=== PATIENT | female | born 1965 | race Caucasian/White ===

== ENCOUNTER 2024-02-22 00:55 | Emergency (ER) | payer MEDICARE, MEDICAID, SELFPAY ==
[2024-02-22 00:56] VITALS: BP 148/104; PULSE 90; RESP 18; TEMP 36.5; O2SAT 100; BMI 32.1
--- NOTE | 2024-02-22 01:01 | CT_ITS ---
INDICATION: FALL EXAMINATION: CT BRAIN - CT Head or Brain W/O Contrast Injection TECHNIQUE: Multiple axial images were obtained of the head without intravenous contrast. The protocol utilizes one or more of the following dose reduction techniques: automated exposure control, adjustment of mA and/or kV according to patient size,and/or use of iterative reconstruction technique. IV Contrast dosage and agent: None. RADIATION DOSAGE (If Supplied By Facility): CTDIvol = ( 44.99 ) mGy, DLP = ( 762.36 ) mGycm COMPARISON: None. FINDINGS: BRAIN: No acute bleed. No edema. Cystic encephalomalacia in the left frontoparietal region related to prior infarct or other prior insult. Dodson-white matter differentiation is maintained. VENTRICLES AND SULCI: Not dilated. EXTRA-AXIAL: No hemorrhage, fluid collection, or mass. CALVARIUM / SKULL BASE: Unremarkable. FACE/SINUSES: Unremarkable. SOFT TISSUES: Unremarkable. CT/Brain/Head without Contrast IMPRESSION: No acute abnormality. Left cerebral encephalomalacia. Electronically Signed: Octavia Alfaro MD at 3:00 EDT ,
--- NOTE | 2024-02-22 01:01 | EKG12_ITS ---
Test Reason : SYNCOPAL EPISODE Blood Pressure : / mmHG Vent. Rate : 090 BPM Atrial Rate : 090 BPM P-R Int : 366 ms QRS Dur : 124 ms QT Int : 410 ms P-R-T Axes : 059 091 -64 degrees QTc Int : 501 ms Sinus rhythm with sinus arrhythmia with 1st degree A-V block Right bundle branch block T wave abnormality, consider inferolateral ischemia Abnormal ECG Confirmed by Erasmo Hawthorne ([id number]), order editor HAN CHANCE ([id number]) on 02/23/2024 1:47:05 PM Referred By: CRISTO Confirmed By:Erasmo Hawthorne
--- NOTE | 2024-02-22 01:02 | EX.ED.DYSGE1 ---
HPI History of Present Illness Chief Complaint: Syncope [facility] Medical History (Updated 02/22/24 @ 03:[address] Lon Hart, DO) Developmental disability Congenital heart defect Murmur, cardiac Seizure Atrial fibrillation Home Medications ?Medication ?Instructions ?Recorded ?Last Taken ?Type Glycopyrrolate [Robinul Forte] 2 mg PO BID 07/12/13 Unknown History Promethazine Vc Syrup 07/12/13 Unknown History dexlansoprazole 60 mg 60 mg PO DAILY 07/12/13 Unknown History capsule,biphase delayed release (Dexilant) famotidine 40 mg tablet (Pepcid) 40 mg PO DAILY 07/12/13 Unknown History lamotrigine 200 mg tablet 200 mg PO DAILY 07/12/13 Unknown History (Lamictal) nitroglycerin 0.4 mg sublingual 0.4 mg sublingual Q5M PRN Chest 07/12/13 Unknown History tablet Pain phenobarbital 64.8 mg tablet 129.6 mg PO BID 07/12/13 Unknown History promethazine 25 mg tablet 12.5 mg PO Q6H PRN PRN 07/12/13 Unknown History Nausea/Vomiting simethicone 80 mg chewable tablet 80 mg PO PRN PRN Gas 07/12/13 Unknown History (Gas-X) atenolol 50 mg tablet 50 mg PO DAILY ##60 07/15/13 Unknown Rx rivaroxaban 20 mg tablet (Xarelto) 20 mg PO DAILY ##90 07/15/13 Unknown Rx lamotrigine 200 mg tablet 300 mg PO QHS 02/22/24 Unknown History (Lamictal) Allergy/AdvReac Type Severity Reaction Status Date / Time Histamine H2 Inhibitors Allergy Hives Verified 07/12/13 12:38 codeine AdvReac Other Verified 07/12/13 12:38 ibuprofen (From Motrin) AdvReac Other Verified 07/12/13 12:38 Sulfa (Sulfonamide AdvReac Other Verified 07/12/13 12:38 Antibiotics) Surgical History (Updated 02/22/24 @ 01:04 by Kacie No) History of surgery on arm History of open heart surgery Social History Smoking Status: Never smoker EXAM Physical Exam Const Vital Signs: 02/22/24 00:56 02/22/24 01:05 02/22/24 02:00 Temperature 97.7 F L Temperature Source Oral Pulse Rate 90 89 Respiratory Rate 18 21 H Respiratory Effort Normal Non-Labored Respiratory Pattern Normal Blood Pressure 148/104 H 143/104 H Blood Pressure Mean 118 117 Pulse Ox 100 97 Oxygen Delivery Method Room Air Room Air [facility] Narrative Medical decision making narrative: HISTORY OF PRESENT ILLNESS: 58-year-old female presents with concern for syncope. Notes prior to arrival she is up to get water when she lost consciousness. REVIEW OF SYSTEMS: Pertinent positives: Syncope, head trauma Pertinent negatives: Headache, fever, vomiting, bleeding diathesis, loss of movement or sensation, chest pain, shortness of breath, abdominal pain PHYSICAL EXAM: Nursing triage notes reviewed, Vital signs reviewed Constitutional: please see [facility] HENT: MMM, normocephalic, atraumatic, no cephalhematoma, no intraoral lesions, midface stable, Eyes: Pupils equal round and reactive to light, Extraocular muscles intact Neck: No stridor, no JVD, full neck ROM, cervical spine without step-off deformities, no TTP, Lungs: Clear to auscultation, No wheezing or rales. No increased work of breathing, no conversational dyspnea, no accessory muscle use, no nasal flaring. No respiratory distress noted, no flail chest or crepitus, Heart: Regular rate and rhythm, No murmurs, No rubs and No gallops, 2+ distal pulses (radial, femoral, posterior tibial) in all extremities Abdomen: Soft, there is no tenderness, rigidity, rebound or guarding, no obvious peritoneal signs, no palpable pulsatile abdominal masses, no auscultated abdominal bruit : No CVAT, stable pelvis to compression Extremities: No edema, no injuries, erythema or edema Neuro: No focal neurological deficits, cranial nerves II through XII intact, 5/5 strength in all extremities. Intact sensation to light touch in all extremities, 2+ reflexes bilateral patella tendons. Normal gait. No ataxia. Skin: No rash or lesions noted MEDICAL DECISION MAKING: Chief Complaint: Syncope External records reviewed: Imaging reviewed: Echocardiogram reviewed 2012 showed ejection fraction of 60% Factors affecting care: atrial fibrillation on Xarelto, Social determinants of health: History of MRDD History obtained from others: Patient's family Consults: none at this time [facility] Narrative: Patient was hemodynamically stable, afebrile and nontoxic-appearing. Exam without focal cardiopulmonary maladies. No signs of trauma. Initial vital signs were blood pressure 148/104, pulse of 90, respirate 18, temperature 97.7, O2 sat 100% I considered the following differential diagnosis: ICH, arrhythmia, anemia, electro disturbance, ACS, PE, pneumonia, pneumothorax Patient's history and clinical exam not consistent with PE, she is on a blood thinner. She has no signs of right heart strain. She is low risk Wells score. As such while I considered obtaining a CT of the chest I thought this not indicated at this time given low risk of VTE. ALL IMAGES (IF OBTAINED) HAVE BEEN PERSONALLY REVIEWED AND INTERPRETED BY MYSELF. Initial EKG with rate controlled atrial fibrillation at a rate of 90, right axis deviation, prolonged QT interval, no STEMI BMP without evidence of significant electrolyte abnormalities, no anion gap, no acute kidney injury. High-sensitivity troponin is negative, no evidence of myocardial ischemia x 2 BNP within normal limits suggestive of no heart failure CBC without leukocytosis, severe anemia, no thrombocytopenia. CT scan of the head shows no evidence of ICH I have personally reviewed the patient's chest x-ray. Chest x-ray is unremarkable for pulmonary edema, pneumothorax, pneumonia or focal cardiopulmonary abnormality. The synthesis of the patient's history, physical exam, labs images suggest no acute life-limiting etiology specifically no signs of heart failure, volume overload, ACS, PE, dissection, pneumonia, pneumothorax, subarachnoid hemorrhage, ICH, anemia, electrolyte disturbance, significant dehydration The etiology of patient's syncope remains unclear however it is unlikely to be life-threatening. Patient has an already scheduled point with cardiology for evaluation and potential planned pacemaker placement. There is no indication for admission at this time for pacemaker placement as patient has no definitive heart block on her EKG or monitoring. No events on telemetry. The patient and/or family, caregivers express understanding. The patient and/or family, caregivers agrees with the plan. Shared decision making: I will have a discussion with the patient and or visitors regarding risk/benefits of further testing or admission. They will be made aware of of the risk/benefits inherent in this decision they will be given the opportunity to voice understanding. Total critical care time today provided was at least 0 minutes. This excludes separately billable procedures. Critical care time (if documented) is secondary to the patient having high probability of clinically significant/life threatening deterioration in the patient's condition which required my urgent intervention. Impression: 1. Syncope 2. Atrial fibrillation 3. History of anticoagulant Dispo: Discharge home This note was generated with [employer] dictation software. It may contain incorrect words, spelling, and punctuation that were not noted in review of the chart prior to signing. Lab Data Labs: Laboratory Results - last 24 hr 02/22/24 02/22/24 01:20 02:15 WBC 7.7 RBC 4.66 Hgb 14.4 Hct 43.5 MCV 93.3 MCH 30.9 MCHC 33.1 RDW Std Deviation 43.5 RDW Coeff of Shaw 12.8 Plt Count 265 MPV 10.2 Immature Gran % (Auto) 0.400 Neut % (Auto) 45.4 L Lymph % (Auto) 41.9 H Wilkes % (Auto) 8.4 Eos % (Auto) 3.0 Baso % (Auto) 0.9 Absolute Neuts (auto) 3.5 Absolute Lymphs (auto) 3.21 Nucleated RBC % 0 Sodium 139 Potassium 3.9 Chloride 105 Carbon Dioxide 28.0 Anion Gap 6 BUN 19 H Creatinine 0.96 Estim Creat Clear Calc 55.96 Est GFR (MDRD) Af Amer 76 Est GFR (MDRD) Non-Af 63 BUN/Creatinine Ratio 19.8 Glucose 97 Calcium 9.1 Troponin I High Sens 7 8 B-Natriuretic Peptide 41.3 Radiography Diagnostic Testing: Clinical Impression(s) from Imaging Studies Brain CT 02/22/24 01:01 IMPRESSION: No acute abnormality. Left cerebral encephalomalacia. Electronically Signed: Octavia Alfaro MD at 3:00 EDT , Chest X-Ray 02/22/24 01:35 IMPRESSION: No evidence of active intrathoracic disease. Electronically Signed: Octavia Alfaro MD at 3:08 EDT , Discharge Plan Triage Chief Complaint: Syncope ED Provider: Lon Hart Dx/Rx/DC Orders Clinical Impression: Syncope Instructions: Causes of Syncope, ED Fainting, Uncertain Cause Prescriptions: No Action lamotrigine [Lamictal] 200 MG tablet 200 mg PO DAILY Patient Comments: 1 TABLET IN MORNING AND 1 AND 1/2 TABLETS AT NIGHT famotidine [Pepcid] 40 MG tablet 40 mg PO DAILY promethazine 25 MG tablet 12.5 mg PO Q6H PRN PRN (Reason: Nausea/Vomiting) phenobarbital 64.8 MG tablet 129.6 mg PO BID nitroglycerin 0.4 MG tablet 0.4 mg sublingual Q5M PRN (Reason: Chest Pain) simethicone [Gas-X] 80 MG tablet,chewable 80 mg PO PRN PRN (Reason: Gas) dexlansoprazole [Dexilant] 60 MG capsule,biphase delayed releas 60 mg PO DAILY Glycopyrrolate [Robinul Forte] 2 MG tablet 2 mg PO BID Promethazine Vc Syrup Xarelto 20 MG tablet 20 mg PO DAILY Qty: 90 0RF atenolol 50 MG tablet 50 mg PO DAILY Qty: 60 0RF lamotrigine [Lamictal] 200 mg tablet 300 mg PO QHS Primary Care Provider: George Soliman Referrals: Manuel Molina, [Non-Staff] - Activity Restrictions/Additional Instructions: Thank you for trusting us with your care today! Please drink plenty of fluids. Please follow-up with your already scheduled cardiology appointment. Please return to the emergency department if your symptoms change or worsen. Please follow with Cardiology for further outpatient evaluation and management. Print Language: [place] Disposition Disposition: Home, Self Care
[2024-02-22] MEDS: 0.9% Normal Saline (1000mL) 1,000 ML 1000 ML IV (01:17)
[2024-02-22 01:31] LABS: Absolute Lymphocyte Count 3.21 X10^3/uL (0.83-4.51); Absolute Neutrophil Count 3.5 X10^3/uL (2.0-7.7); Basophil# 0.07 X10^3/uL; Basophil% 0.9 % (0-1); Eosinophil# 0.23 X10^3/uL; Hematocrit 43.5 % (37-47); Hemoglobin 14.4 g/dL (12.0-15.0); Lymphocyte # 3.21 X10^3/ul (0.83-4.51); Lymphocyte % 41.9 % (19-41); Mean Corp Hgb Conc 33.1 g/dL (32-36); Mean Corpuscular Hgb 30.9 pg (27.0-32.0); Mean Corpuscular Volume 93.3 fL (81-99); Mean Platelet Vol. 10.2 fl (6.2-12.0); Monocyte# 0.64 X10^3/uL; Monocyte% 8.4 % (0-10); NRBC Flagged by Analyzer 0 % (0-5); Neutrophil # 3.48 X10^3/uL (2.7-7.7); Neutrophil % 45.4 % (47-70); Platelet Count 265 K/mm3 (150-450); RBC Distribution Width CV 12.8 % (11.6-14.6); RBC Distribution Width SD 43.5 fl (35.1-43.9); Red Blood Count 4.66 M/mm3 (4.2-5.4); White Blood Count 7.7 K/mm3 (4.4-11.0)
--- NOTE | 2024-02-22 01:35 | RAD_ITS ---
INDICATION: Syncope EXAMINATION/TECHNIQUE: X-RAY - XR Chest 1 View AP portable. 1:29 AM COMPARISON: 07/12/2013 FINDINGS: LINES/DEVICES: None. LUNGS: No consolidation. No pneumothorax. MEDIASTINUM: Unremarkable. CARDIAC SILHOUETTE: Not enlarged. BONES AND SOFT TISSUES: No acute abnormalities. RAD/Chest 1 View (Portable) IMPRESSION: No evidence of active intrathoracic disease. Electronically Signed: Octavia Alfaro MD at 3:08 EDT ,
[2024-02-22 01:43] LABS: Anion Gap 6 (5-15); BUN 19 mg/dL (7-18); BUN/Creat Ratio 19.8 RATIO (10-20); Calcium,Total 9.1 mg/dL (8.5-10.1); Chloride 105 mmol/L (98-107); Creatinine, Serum 0.96 mg/dL (0.55-1.02); EST Glomerular Filtration Rate 63 mL/min (>60); Est Glom Filt Rate - Afr Amer 76 mL/min (>60); Estimated Creatinine Clearance 55.96 ml/min; Glucose 97 mg/dL (74-106); Potassium 3.9 mmol/L (3.5-5.1); Sodium Level 139 mmol/L (136-145); Troponin-I HS (w/2H Reflex) 7 pg/mL (3.0-54.0)
[2024-02-22 01:52] LABS: BNP,B-Type NATRIURETIC PEPTIDE 41.3 pg/mL (0-100)
[2024-02-22 02:00] VITALS: BP 143/104; PULSE 89; RESP 21; O2SAT 97
[2024-02-22 02:50] LABS: Troponin-I HS 8 pg/mL (3.0-54.0)
[2024-02-22 03:00] VITALS: BP 152/88; PULSE 77; RESP 16; TEMP 36.7; O2SAT 98
[2024-02-22 03:18] VITALS: BP 152/88; PULSE 77; RESP 16; TEMP 36.7; O2SAT 98
[2024-02-22 03:22] LABS: Reflex Troponin-HS? (from REC) Y
== END 2024-02-22 03:33 | disposition home or self-care (01) ==
PROVIDERS: Emergency Provider Emergency Medicine; PCP Internal Medicine; Visit Provider Emergency Medicine
DX: R55 Syncope and collapse (principal); I48.91 Unspecified atrial fibrillation; Z79.01 Long term (current) use of anticoagulants
CPT/HCPCS: 70450; 71045; 80048; 83880; 84484; 85025; 93005; 96360; 99284; J7030; A4216